=== PATIENT | female | born 1975 | race Caucasian/White ===

== ENCOUNTER 2017-08-09 16:43 | Emergency (ER) | payer MEDICAID ==
[~2017-08-09] VITALS: Ht 165.1 cm; Wt 60.0 kg
[2017-08-09 17:16] VITALS: BP 145/98
[2017-08-09] MEDS ORDERED: DICL50TA9 PO (17:20)
== END 2017-08-09 19:55 | disposition left against medical advice (07) ==
LOC: EDBD → ER 18:17
DX: M54.9 Dorsalgia, unspecified (principal); Z53.21 Procedure and treatment not carried out due to patient leaving prior to being seen by health care provider

== ENCOUNTER 2017-08-13 08:29 | Emergency (ER) | payer MEDICAID ==
[~2017-08-13] VITALS: Ht 167.6 cm; Wt 55.0 kg
[~2017-08-13 08:29] MED LIST: DICL50TA9 PO
[2017-08-13 09:43] LABS: BASOPHILS % 1.1 % (0.0-2.0); EOSINOPHILS % 5.1 % (0.0-5.0); HEMATOCRIT. 31.1 % (36.0-48.0); HEMOGLOBIN. 10.3 g/dL (12.0-16.0); LYMPHOCYTES % 35.2 % (20.0-50.0); MEAN CORPUSCULAR HEMOGLOBIN 28.5 pg (28.0-32.0); MEAN CORPUSCULAR VOLUME 86.2 fL (81.0-99.0); MEAN PLATELET VOLUME 8.5 fl (7.4-10.4); MONOCYTES % 5.8 % (2.0-8.0); NEUTROPHILS % 52.8 % (40.0-76.0); PLATELET 172 x1000/uL (130-400); RED BLOOD CELL COUNT 3.61 mill/uL (4.2-5.4); RED CELL DISTRIBUTION WIDTH 14.4 % (11.6-14.6)
[2017-08-13 09:46] LABS: HCG SCREEN NEGATIVE
[2017-08-13 09:54] LABS: CARBON DIOXIDE 30 mEq/L (21-32); CHLORIDE 109 mEq/L (98-107); ETHANOL BLOOD < 10 mg/dL; TROPONIN I < 0.02 ng/mL (0.00-0.04)
[2017-08-13 10:54] LABS: *AMPHETAMINES SCREEN URINE NEGATIVE (NEGATIVE); *BARBITURATES SCREEN URINE NEGATIVE (NEGATIVE); *BENZODIAZEPINES SCREEN URINE NEGATIVE (NEGATIVE); *COCAINE SCREEN URINE NEGATIVE (NEGATIVE); CANNABINOID URINE SCREEN NEGATIVE (NEGATIVE); METHADONE URINE SCREEN NEGATIVE (NEGATIVE); OPIATES URINE SCREEN NEGATIVE (NEGATIVE); PHENCYCLIDINE URINE SCREEN NEGATIVE (NEGATIVE)
[2017-08-13] MEDS ORDERED: SODIUM CHLORIDE 0.9% 1,000 ML IV ONE (12:45)
[2017-08-13 14:36] VITALS: BP 124/75
== END 2017-08-13 14:47 | disposition home or self-care (01) ==
LOC: EDBD 08:33 → ER 08:33
DX: E86.0 Dehydration (principal); D64.9 Anemia, unspecified; D25.9 Leiomyoma of uterus, unspecified; S80.211S Abrasion, right knee, sequela; S60.8 Other superficial injuries of wrist; S60.511S Abrasion of right hand, sequela; V18 Pedal cycle rider injured in noncollision transport accident
CPT/HCPCS: 36415; 70450; 71010; 76830; 76856; 80053; 80305; 82962; 83735; 83880; 84484; 84703; 85025; 87804; 93005; 96360; 96361; 99285; G0482; J7030